=== PATIENT | male | born 2000 | race Caucasian/White ===

== ENCOUNTER → 2023-04-09 | Outpatient (CLI) | payer OTHER ==
[~2023-04-09] MED LIST: Iohexol 300 - 10 ML VIAL IV ONE; Triamcinolone 40 MG/ML 1 ML VIAL IJ ONE
== END ==
LOC: COL.RAD 08:35
DX: M25.551 Pain in right hip (principal)
CPT/HCPCS: J0665; J3301; Q9967

== ENCOUNTER → 2023-11-19 | Outpatient (CLI) | payer OTHER | LOC: COL.RAD 08:27 | DX: R94.4 Abnormal results of kidney function studies (principal) ==